=== PATIENT | female | born 1975 | race Caucasian/White ===

== ENCOUNTER → 2016-11-01 | Outpatient (CLI) | payer BC ==
--- NOTE | 2016-11-01 15:55 | DI ---
US PELVIC-TRANSVAGINAL,11/01/2016 2:52 PM: Clinical History: Abnormal bleeding. Previous Exam: None at this facility. Findings: Multiple transvaginal grayscale and color Doppler sonographic images are obtained through the pelvis demonstrating a normal-appearing uterus measuring 7.4 x 4.8 x 4.9 cm with an endometrial stripe measu ring 6 mm. There is a trace amount of free fluid in the cul-de-sac. The right ovary measures 3.2 x 2.4 x 2.4 cm and contains a few maturing follicles. There is normal venous arterial Doppler waveforms. The right ovary is also normal measuring 3.1 x 2.8 x 2.6 cm containing multiple maturing follicles. Impression: Trace amount of free fluid within the cul-de-sac otherwise unremarkable.
== END ==
LOC: US 14:46
PROVIDERS: ATTEND Obstetrics & Gynecology Gynecology
DX: N93.9 Abnormal uterine and vaginal bleeding, unspecified (principal)
CPT/HCPCS: 76830